=== PATIENT | male | born 1955 | race Caucasian/White ===

== ENCOUNTER 2020-12-31 09:56 | Day surgery (SDC) | payer OTHER, SELFPAY ==
[~2020-12-31] VITALS: Ht 165.1 cm; Wt 74.8 kg
[2020-12-31] MEDS ORDERED: fentaNYL citrate 0.05 MG/ML VIAL ONE (11:06)
[2020-12-31] MEDS ORDERED: MIDAZOLAM 2 MG/2 ML VIAL ONE (11:06)
[2020-12-31] MEDS ORDERED: LIDOCAINE 2% 100 MG/5 ML UJET TP ONE ×2 (11:06→13:50)
[2020-12-31] MEDS ORDERED: KETOROLAC 60 MG/2 ML VIAL IM ONE (11:11)
[2020-12-31] MEDS ORDERED: KETOROLAC 30 MG/ML VIAL IVP ONE (13:05)
== END 2020-12-31 12:30 | disposition home or self-care (01) ==
LOC: MDS 09:56 → MFCC 10:11 → MDS 12:30
PROVIDERS: ATTEND Internal Medicine Gastroenterology
DX: Z12.11 Encounter for screening for malignant neoplasm of colon (principal); Z20.828 Contact with and (suspected) exposure to other viral communicable diseases
CPT/HCPCS: 45378; J1885; U0003; J2250; J3010

== ENCOUNTER 2022-05-22 11:30 | Outpatient (CLI) | payer OTHER | END 2022-05-22 23:59 | disposition home or self-care (01) | LOC: MLB 11:30 → EDSTATUS 05-24 15:26 | PROVIDERS: ATTEND Internal Medicine Gastroenterology | DX: Z01.812 Encounter for preprocedural laboratory examination (principal); Z20.822 Contact with and (suspected) exposure to COVID-19 ==